=== PATIENT | male | born 1955 | race African-American/Black ===

== ENCOUNTER 2022-01-02 09:54 | Emergency (ER) | payer OTHER ==
[~2022-01-02] VITALS: Ht 175.3 cm; Wt 79.0 kg
[2022-01-02] MEDS ORDERED: IBUPROFEN 600MG TABLET PO STA (10:15)
[2022-01-02 10:36] VITALS: BP 117/68
[2022-01-02 10:45] LABS: BASOPHILS % 0.7 % (0.0-2.0); EOSINOPHILS % 1.4 % (0.0-5.0); HEMATOCRIT. 40.8 % (42.0-52.0); HEMOGLOBIN. 13.6 g/dL (14.0-18.0); LYMPHOCYTES % 20.6 % (20.0-50.0); MEAN CORPUSCULAR HEMOGLOBIN 31.1 pg (28.0-32.0); MEAN CORPUSCULAR VOLUME 92.9 fL (80.0-94.0); MEAN PLATELET VOLUME 7.4 fl (7.4-10.4); MONOCYTES % 8.1 % (2.0-8.0); NEUTROPHILS % 69.2 % (40.0-76.0); PLATELET 255 x1000/uL (130-400); RED BLOOD CELL COUNT 4.39 mill/uL (4.7-6.1); RED CELL DISTRIBUTION WIDTH 13.1 % (11.6-14.6)
[2022-01-02 10:52] LABS: CHLORIDE 106 mEq/L (98-107)
[2022-01-02 11:00] LABS: ETHANOL BLOOD < 10 mg/dL
== END 2022-01-02 11:30 | disposition home or self-care (01) ==
LOC: ER 09:54
DX: M54.9 Dorsalgia, unspecified (principal); F32.A Depression, unspecified; F90.9 Attention-deficit hyperactivity disorder, unspecified type; F43.10 Post-traumatic stress disorder, unspecified; Z87.891 Personal history of nicotine dependence
CPT/HCPCS: 36415; 80053; 80307; 80320; 80329; 85025; 99283; G0480

== ENCOUNTER 2022-01-21 17:13 | Emergency (ER) | payer MEDICAID, OTHER ==
[~2022-01-21] VITALS: Ht 167.6 cm; Wt 78.0 kg
[2022-01-21] MEDS ORDERED: ONDANSETRON 4MG ODT PO ONE (18:45)
[2022-01-21] MEDS ORDERED: MECLIZINE 25MG TABLET PO ONE (18:45)
[2022-01-21] MEDS ORDERED: DIAZEPAM 5 MG/ML 2ML CPJ IV ONE (18:45)
[2022-01-21] MEDS ORDERED: SODIUM CHLORIDE 0.9% 1,000 ML IV ONE (18:45)
[2022-01-21 19:16] LABS: CLARITY URINE CLEAR (CLEAR); COLOR URINE YELLOW (YELLOW); KETONES URINE 2+ (NEGATIVE); LEUKOCYTE ESTERASE URINE NEGATIVE (NEGATIVE); NITRITE URINE NEGATIVE (NEGATIVE); OCCULT BLOOD URINE NEGATIVE (NEGATIVE); PH URINE 5.5 (4.5-8.0); PROTEIN URINE NEGATIVE (NEGATIVE); SPECIFIC GRAVITY URINE 1.013 (1.005-1.030); UROBILINOGEN URINE 0.2 E.U./dL (0.2-1.0)
[2022-01-21 19:20] LABS: BASOPHILS % 0.2 % (0.0-2.0); EOSINOPHILS % 0.1 % (0.0-5.0); HEMATOCRIT. 39.4 % (42.0-52.0); HEMOGLOBIN. 13.3 g/dL (14.0-18.0); LYMPHOCYTES % 8.9 % (20.0-50.0); MEAN CORPUSCULAR HEMOGLOBIN 30.8 pg (28.0-32.0); MEAN CORPUSCULAR VOLUME 91.4 fL (80.0-94.0); MEAN PLATELET VOLUME 8.1 fl (7.4-10.4); MONOCYTES % 6.3 % (2.0-8.0); NEUTROPHILS % 84.5 % (40.0-76.0); PLATELET 252 x1000/uL (130-400); RED BLOOD CELL COUNT 4.31 mill/uL (4.7-6.1); RED CELL DISTRIBUTION WIDTH 12.9 % (11.6-14.6)
[2022-01-21 19:27] LABS: CHLORIDE 99 mEq/L (98-107)
[2022-01-21 19:33] LABS: ETHANOL BLOOD < 10 mg/dL
[2022-01-21 19:57] LABS: *AMPHETAMINES SCREEN URINE PRESUMTIVE POSITIVE (NEGATIVE); *BARBITURATES SCREEN URINE NEGATIVE (NEGATIVE); *BENZODIAZEPINES SCREEN URINE NEGATIVE (NEGATIVE); *COCAINE SCREEN URINE NEGATIVE (NEGATIVE); CANNABINOID URINE SCREEN PRESUMTIVE POSITIVE (NEGATIVE); METHADONE URINE SCREEN NEGATIVE (NEGATIVE); OPIATES URINE SCREEN NEGATIVE (NEGATIVE); PHENCYCLIDINE URINE SCREEN NEGATIVE (NEGATIVE)
[2022-01-21] MEDS ORDERED: MECL-159 MT (23:00)
[2022-01-21] MEDS ORDERED: POTA-204 MT (23:00)
[2022-01-21 23:48] VITALS: BP 137/73
== END 2022-01-21 23:48 | disposition home or self-care (01) ==
LOC: ER 17:13
DX: T43.621A Poisoning by amphetamines, accidental (unintentional), initial encounter (principal); T40.711A Poisoning by cannabis, accidental (unintentional), initial encounter; R42 Dizziness and giddiness; R11.2 Nausea with vomiting, unspecified; F32.A Depression, unspecified; E87.6 Hypokalemia; Y92.59 Other trade areas as the place of occurrence of the external cause
CPT/HCPCS: 36415; 70450; 71045; 80053; 80305; 80307; 80320; 80329; 81003; 83690; 85025; 93005; 96360; 99285; J7030; J8597; Q0162; G0480

== ENCOUNTER 2024-01-25 17:47 | Emergency (ER) | payer MEDICAID ==
[~2024-01-25] VITALS: Ht 175.3 cm; Wt 73.0 kg
[~2024-01-25 17:47] MED LIST: MECL-299 MT; POTA-204 MT
[2024-01-25 17:50] VITALS: O2SAT 99
[2024-01-25] MEDS: SODIUM CHLORIDE 0.9% 1,000 ML IV ONE (19:24)
[2024-01-25] MEDS: ONDANSETRON HCL 4MG/2ML INJ IV ONE (19:24)
[2024-01-25] MEDS: LORAZEPAM 2MG/ML INJ IV ONE (19:25)
[2024-01-25 19:47] LABS: BASOPHILS % 0.1 % (0.0-2.0); EOSINOPHILS % 0.1 % (0.0-5.0); HEMATOCRIT. 31.9 % (42.0-52.0); HEMOGLOBIN. 10.2 g/dL (14.0-18.0); LYMPHOCYTES % 11.6 % (20.0-50.0); MEAN CORPUSCULAR HGB CONC 32.1 g/dL (31.0-37.0); MEAN CORPUSCULAR VOLUME 96.6 fL (80.0-94.0); MEAN PLATELET VOLUME 7.3 fl (7.4-10.4); MONOCYTES % 6.2 % (2.0-8.0); PLATELET 211 x1000/uL (130-400); RED CELL DISTRIBUTION WIDTH 13.7 % (11.6-14.6); WHITE BLOOD COUNT 7.9 x1000/uL (4.5-11.0)
[2024-01-25 19:48] LABS: CHLORIDE 103 mEq/L (98-107); POTASSIUM 3.7 mEq/L (3.5-5.1); SODIUM 136 mEq/L (136-145)
[2024-01-25 19:49] LABS: CARBON DIOXIDE 26 mEq/L (21-32)
[2024-01-25 19:50] LABS: CALCIUM 8.9 mg/dL (8.7-10.4)
[2024-01-25 19:54] LABS: CREATININE 0.8 mg/dL (0.6-1.3); GLUCOSE 189 mg/dL (70-105); UREA NITROGEN BLOOD 11 mg/dL (9-23)
[2024-01-25 20:29] LABS: TROPONIN I HIGH SENSITIVITY < 4 ng/L (3.0-53)
[2024-01-25] MEDS ORDERED: MECL-264 PO (21:41)
[2024-01-25] MEDS ORDERED: P50 MT (21:41)
[2024-01-25 22:03] VITALS: BP 104/53; PULSE 55; RESP 10; TEMP 97.7
== END 2024-01-25 22:35 | disposition home or self-care (01) ==
LOC: ER 17:47
DX: H81.10 Benign paroxysmal vertigo, unspecified ear (principal); F32.A Depression, unspecified; E11.9 Type 2 diabetes mellitus without complications; F15.90 Other stimulant use, unspecified, uncomplicated; Z59.00 Homelessness unspecified
CPT/HCPCS: 36415; 71045; 80048; 83880; 84484; 85025; 93005; 96361; 96374; 96375; 99285; J2060; J2405; J7030

== ENCOUNTER 2024-01-25 22:48 | Emergency (ER) | payer MEDICAID ==
[~2024-01-25] VITALS: Ht 175.3 cm; Wt 72.0 kg
[~2024-01-25 22:48] MED LIST changes: +MECL-264 PO; +P50 MT
[2024-01-25 22:52] VITALS: O2SAT 99
[2024-01-25 23:38] LABS: CHLORIDE 103 mEq/L (98-107); POTASSIUM 3.6 mEq/L (3.5-5.1); SODIUM 139 mEq/L (136-145)
[2024-01-25 23:39] LABS: CALCIUM 9.1 mg/dL (8.7-10.4); CARBON DIOXIDE 31 mEq/L (21-32)
[2024-01-25 23:41] LABS: BASOPHILS % 0.5 % (0.0-2.0); EOSINOPHILS % 0.5 % (0.0-5.0); HEMOGLOBIN. 13.4 g/dL (14.0-18.0); LYMPHOCYTES % 19.9 % (20.0-50.0); MEAN CORPUSCULAR HEMOGLOBIN 31.3 pg (28.0-32.0); MEAN CORPUSCULAR HGB CONC 33.5 g/dL (31.0-37.0); MEAN CORPUSCULAR VOLUME 93.3 fL (80.0-94.0); MEAN PLATELET VOLUME 7.1 fl (7.4-10.4); MONOCYTES % 7.5 % (2.0-8.0); NEUTROPHILS % 71.6 % (40.0-76.0); PLATELET 283 x1000/uL (130-400); RED BLOOD CELL COUNT 4.29 mill/uL (4.7-6.1); RED CELL DISTRIBUTION WIDTH 13.3 % (11.6-14.6); WHITE BLOOD COUNT 8.8 x1000/uL (4.5-11.0)
[2024-01-25 23:44] LABS: CREATININE 0.8 mg/dL (0.6-1.3); GLUCOSE 165 mg/dL (70-105); UREA NITROGEN BLOOD 14 mg/dL (9-23)
[2024-01-25 23:46] LABS: ACETAMINOPHEN < 2 ug/mL (10-30)
[2024-01-26 00:02] LABS: *AMPHETAMINES SCREEN URINE NEGATIVE (NEGATIVE); *BARBITURATES SCREEN URINE NEGATIVE (NEGATIVE); *BENZODIAZEPINES SCREEN URINE NEGATIVE (NEGATIVE); *COCAINE SCREEN URINE NEGATIVE (NEGATIVE); CANNABINOID URINE SCREEN PRESUMPTIVE POSITIVE (NEGATIVE); ECSTASY MDMA SCREEN URINE NEGATIVE (NEGATIVE); METHADONE URINE SCREEN NEGATIVE (NEGATIVE); OPIATES URINE SCREEN NEGATIVE (NEGATIVE); PHENCYCLIDINE URINE SCREEN NEGATIVE (NEGATIVE)
[2024-01-26 00:07] LABS: ETHANOL BLOOD < 10 mg/dL (<10)
[2024-01-26 09:40] VITALS: BP 110/55; PULSE 62; RESP 18; TEMP 98.2
== END 2024-01-26 09:57 | disposition home or self-care (01) ==
LOC: ER 22:48
DX: R45.851 Suicidal ideations (principal); E11.9 Type 2 diabetes mellitus without complications; R42 Dizziness and giddiness; F15.90 Other stimulant use, unspecified, uncomplicated; F10.20 Alcohol dependence, uncomplicated; Z20.822 Contact with and (suspected) exposure to COVID-19; Y90.0 Blood alcohol level of less than 20 mg/100 ml
CPT/HCPCS: 36415; 80048; 80305; 80307; 80320; 80329; 85025; 87426; 99285; G0480